=== PATIENT | female | born 1975 | race American Indian/Alaskan Native ===

== ENCOUNTER 2017-02-28 10:24 | Emergency (ER) | payer SELFPAY ==
[2017-02-28 11:44] LABS: Basophils % (Auto) 0.6 % (0.0-1.8); Eosinophils % (Auto) 3.6 % (0.0-4.3); Hematocrit 38.7 % (30.3-42.9); Hemoglobin 12.8 gm/dl (10.1-14.3); Mean Corpuscular HGB Conc 33 % (30-34); Mean Corpuscular Hemoglobin 28 pg (28-32); Mean Corpuscular Volume 84 fl (79-97); Platelet Count 339 K/mm3 (140-440); Red Cell Distribution Width 14.4 % (13.2-15.2); White Blood Count 10.4 K/mm3 (4.5-11.0)
[2017-02-28 12:44] LABS: Bacteria,Urine 1+ /HPF (Negative); Bilirubin,Urine NEG (Negative); Blood,Urine LG (Negative); Ketones,Urine NEG (Negative); Leukocyte Esterase,Urine SM (Negative); Mucus,Urine FEW /HPF; Nitrite,Urine NEG (Negative); Protein,Urine <15 mg/dL mg/dL (Negative); Urobilinogen,Urine < 2.0 mg/dL (<2.0)
[2017-02-28 13:08] LABS: Alanine Aminotransferase 11 units/L (7-56); Albumin 3.8 g/dL (3.9-5); Albumin/Globulin Ratio 0.9 %; Alkaline Phosphatase 61 units/L (35-129); Anion Gap 17 mmol/L; BUN/Creatinine Ratio 8.75; Blood Urea Nitrogen 7 mg/dL (7-17); Calcium 9.5 mg/dL (8.4-10.2); Carbon Dioxide 24 mmol/L (22-30); Chloride 101.4 mmol/L (98-107); Glucose 89 mg/dL (65-100); Lipase 32 units/L (13-60); Potassium 4.6 mmol/L (3.6-5.0); Sodium 138 mmol/L (137-145); Total Protein 7.9 g/dL (6.3-8.2)
--- NOTE | 2017-02-28 13:49 | Emergency Department Report ---
HPI - General Chief Complaint: Abdominal Pain Time Seen by Provider: 02/28/17 13:08 - HPI HPI: Room 38 The patient is a 41-year-old female presenting with a chief complaint of headache. The patient states she came to the emergency department today because she has had headaches since 2005. The patient states that is constant. The patient states she has been seen in the past and given a diagnosis except for presumed migraines. The patient states she has not followed up with a neurologist. Patient does admit to nausea but denies vomiting or fever. The patient currently gives her pain a score of 10/10 Location: Head Duration: 11 years Quality: Headache Severity: Within 10/10 Modifying factors: [see above] Context: [see above] Mode of transportation: [not driving] ED Past Medical Hx - Past Medical History Hx GERD: Yes Hx Headaches / Migraines: Yes Additional medical history: ULCERS. HYPOGLYCEMIA. HIATAL HERNIA - Surgical History Past Surgical History?: No Additional Surgical History: D & C. TUBAL LIGATION - Family History Family history: no significant - Social History Smoking Status: Current Every Day Smoker (1/3 pack per day) Substance Use Type: None - Medications Home Medications: Home Medications Medication Instructions Recorded Confirmed Last Taken Type Butalb/Acetamin/Caff 50-325-40 1 tab PO Q8HR PRN #20 tablet 02/28/17 Unknown Rx [Fioricet] ED Review of Systems ROS: Stated complaint: ABD PAIN/LIGHT HEADED Other details as noted in HPI Comment: All other systems reviewed and negative Constitutional: denies: chills, fever Eyes: denies: eye pain, eye discharge, vision change ENT: denies: ear pain, throat pain Respiratory: denies: cough, shortness of breath, wheezing Cardiovascular: denies: chest pain, palpitations Endocrine: no symptoms reported Gastrointestinal: nausea. denies: vomiting Genitourinary: denies: urgency, dysuria, discharge Musculoskeletal: denies: back pain, joint swelling, arthralgia Skin: denies: rash, lesions Neurological: headache. denies: weakness, paresthesias Psychiatric: denies: anxiety, depression Hematological/Lymphatic: denies: easy bleeding, easy bruising Physical Exam - Physical Exam Vital Signs: Vital Signs 02/28/17 02/28/17 10:55 11:53 Temperature 98.6 F Pulse Rate 90 90 Respiratory 17 18 Rate Blood Pressure 132/94 Blood Pressure 139/93 [Right] O2 Sat by Pulse 100 98 Oximetry Physical Exam: GENERAL: The patient is well-developed well-nourished female lying on stretcher not appearing to be in acute distress. [] HEENT: Normocephalic. Atraumatic. Extraocular motions are intact. Patient has moist mucous membranes. NECK: Supple. No meningitic signs are noted. Trachea midline CHEST/LUNGS: Clear to auscultation. There is no respiratory distress noted. HEART/CARDIOVASCULAR: Regular. There is no tachycardia. There is no gallop rub or murmur. ABDOMEN: Abdomen is soft, nontender. Patient has normal bowel sounds. There is no abdominal distention. SKIN: There is no rash. There is no edema. There is no diaphoresis. NEURO: The patient is awake, alert, and oriented. The patient is cooperative. The patient has no focal neurologic deficits. The patient has normal speech. Cranial nerves II through XII grossly intact, no drift MUSCULOSKELETAL: There is no evidence of acute injury. ED Course Vital Signs 02/28/17 02/28/17 10:55 11:53 Temperature 98.6 F Pulse Rate 90 90 Respiratory 17 18 Rate Blood Pressure 132/94 Blood Pressure 139/93 [Right] O2 Sat by Pulse 100 98 Oximetry ED Medical Decision Making - Lab Data Result diagrams: 02/28/17 11:07 02/28/17 11:07 Laboratory Tests 02/28/17 02/28/17 02/28/17 11:07 11:07 11:07 WBC 10.4 RBC 4.60 Hgb 12.8 Hct 38.7 MCV 84 MCH 28 MCHC 33 RDW 14.4 Plt Count 339 Lymph % (Auto) 25.7 [place] % (Auto) 7.2 Eos % (Auto) 3.6 Baso % (Auto) 0.6 Lymph # 2.7 [place] # 0.8 Eos # 0.4 Baso # 0.1 Seg Neutrophils % 62.9 Seg Neutrophils # 6.6 Sodium 138 Potassium 4.6 Chloride 101.4 Carbon Dioxide 24 Anion Gap 17 BUN 7 Creatinine 0.8 Estimated GFR > 60 BUN/Creatinine Ratio 8.75 Glucose 89 Calcium 9.5 Total Bilirubin 0.20 AST 18 ALT 11 Alkaline Phosphatase 61 Total Protein 7.9 Albumin 3.8 L Albumin/Globulin Ratio 0.9 Lipase 32 HCG, Qual Negative Urine Color Urine Turbidity Urine pH Ur Specific [place] Urine Protein Urine Glucose (UA) Urine Ketones Urine Blood Urine Nitrite Urine Bilirubin Urine Urobilinogen Ur Leukocyte Esterase Urine WBC (Auto) Urine RBC (Auto) U Epithel Cells (Auto) Urine Bacteria (Auto) Urine Mucus 02/28/17 12:25 WBC RBC Hgb Hct MCV MCH MCHC RDW Plt Count Lymph % (Auto) [place] % (Auto) Eos % (Auto) Baso % (Auto) Lymph # [place] # Eos # Baso # Seg Neutrophils % Seg Neutrophils # Sodium Potassium Chloride Carbon Dioxide Anion Gap BUN Creatinine Estimated GFR BUN/Creatinine Ratio Glucose Calcium Total Bilirubin AST ALT Alkaline Phosphatase Total Protein Albumin Albumin/Globulin Ratio Lipase HCG, Qual Urine Color Yellow Urine Turbidity Clear Urine pH 5.0 Ur Specific [place] 1.016 Urine Protein <15 mg/dl Urine Glucose (UA) Neg Urine Ketones Neg Urine Blood Lg Urine Nitrite Neg Urine Bilirubin Neg Urine Urobilinogen < 2.0 Ur Leukocyte Esterase Sm Urine WBC (Auto) 4.0 Urine RBC (Auto) 73.0 U Epithel Cells (Auto) 7.0 Urine Bacteria (Auto) 1+ Urine Mucus Few - Radiology Data Radiology results: report reviewed (CT head), image reviewed (CT head) CT head (read by radiologist)-no intracranial abnormalities. Chronic sinus disease, partially imaged. - Differential Diagnosis migraines, chronic headaches, ICH Critical care attestation.: If time is entered above; I have spent that time in minutes in the direct care of this critically ill patient, excluding procedure time. ED Disposition Clinical Impression: Headache Disposition: DISCHARGED TO HOME OR SELFCARE Is pt being admited?: No Does the pt Need Aspirin: No Condition: Stable Instructions: Acute Headache (ED) Additional Instructions: Return to the emergency department immediately should you develop worsening symptoms, fever, inability to tolerate food or liquid or any other concerns. Prescriptions: Butalb/Acetamin/Caff 50-325-40 [Fioricet] 1 tab PO Q8HR PRN #20 tablet PRN Reason: Headache Referrals: ALFRED WOOD MD [Staff Physician] - 3-5 Days (Dr. Wood is a primary physician. Please follow up with him to be established as a patient) STACY MCCORMICK MD [Staff Physician] - 3-5 Days (Dr. Mccormick is a neurologist. Please follow up with him for further evaluation) Time of Disposition: 14:41
[2017-02-28] MEDS: MORPHINE IM ONE (13:50)
[2017-02-28] MEDS: ZOFRAN IM ONE (13:51)
--- NOTE | 2017-02-28 14:10 | Cat Scan Report ---
Cranial CT without contrast. History: Headache. Findings: The brain parenchyma is normal. There is no evidence of hemorrhage, infarct, mass, or extra-axial collection. The posterior fossa is normal. The ventricles are normal in size and contour. The calvarium is intact. There is partial opacification of visualized ethmoid air cells and the right frontal sinus. Impression: 1. No intracranial abnormalities. 2. Chronic sinus disease, partially imaged.
[2017-02-28] MEDS: FIORICET PO ONE (14:32)
[2017-02-28 15:11] VITALS: BP 128/84
== END 2017-02-28 15:15 | disposition home or self-care (01) ==
LOC: ED 10:24
DX: R51 Headache (principal); K21.9 Gastro-esophageal reflux disease without esophagitis; F17.210 Nicotine dependence, cigarettes, uncomplicated; Z88.0 Allergy status to penicillin; Z91.013 Allergy to seafood; Z91.018 Allergy to other foods; Z88.8 Allergy status to other drugs, medicaments and biological substances
CPT/HCPCS: 36415; 70450; 80053; 81001; 83690; 84703; 85025; 96372; 99284; J2270; J2405